=== PATIENT | female | born 1990 | race Caucasian/White ===

== ENCOUNTER 2019-08-14 14:54 | Emergency (ER) | payer MEDICAID, OTHER ==
[~2019-08-14] VITALS: Ht 157.5 cm; Wt 92.5 kg
[2019-08-14 15:24] VITALS: BP 183/92
--- NOTE | 2019-08-14 15:30 | NUR ---
PT BIB C/O HIGH BLOOD PRESSURE 154/110 UPON NURSING ASSESSMENT AND HEAVINESS OCCIPITAL ANTONIO 8/10 TODAY. DENIES NAUSEA, VOMITING, VISION CHANGES, DIZZINESS, OR CONSTIPATION. PATIENT POSITIONED FOR COMFORT; HOB ELEVATED; BEDRAILS UP X1; BED DOWN. ER MD MADE AWARE OF PT STATUS. IS AT BEDSIDE AND PT IS ON MONITOR.
--- NOTE | 2019-08-14 15:46 | NUR ---
DR GALEAS EVALUATING PT AT BEDSIDE
--- NOTE | 2019-08-14 16:25 | NUR ---
PT AMBULATED TO THE BATHROOM ACCOMPANIED BY .
[2019-08-14 17:12] VITALS: BP 148/88
--- NOTE | 2019-08-14 17:12 | NUR ---
Patient discharged with v/s stable. Written and verbal after care instructions given and explained. Patient verbalized understanding. Ambulatory with steady gait. All questions addressed prior to discharge. Advised to follow up with PMD.
== END 2019-08-14 17:12 | disposition home or self-care (01) ==
LOC: MED 14:54
DX: I10 Essential (primary) hypertension (principal); Z98.890 Other specified postprocedural states
CPT/HCPCS: 99283

== ENCOUNTER 2019-08-26 23:58 | Emergency (ER) | payer OTHER ==
[~2019-08-26] VITALS: Ht 157.5 cm; Wt 93.0 kg
[2019-08-27 00:05] VITALS: BP 146/95
--- NOTE | 2019-08-27 00:08 | NUR ---
PT TAKEN TO BED #7
--- NOTE | 2019-08-27 00:25 | NUR ---
28 YEAR OLD FEMALE COMPLAINS OF EPIGASTRIC PAIN 10/ X 3 HOURS AGO. PATIENT STATES SHE HAS HAD NAUSEA AND VOMITTING. PATIENT BOWEL SOUNDS ACTIVE X4, NONTENDER ON PALPATION, FLAT, AND SOFT. PATIENT AOX4, BREATHING EVEN AND UNLABORED, SKIN WARM AND DRY. BED IN LOWEST POSITION, LOCKED, BED RAIL UPX1. PMH - HTN MEDS - "BP MEDS" ALLERGIES - NKA
[2019-08-27] MEDS ORDERED: ONDANSETRON 4 MG/2 ML VIAL IVP ONE (01:00)
[2019-08-27] MEDS ORDERED: MORPHINE SULFATE 4 MG/ML SYR IVP ONE (01:00)
[2019-08-27 01:21] LABS: APPEARANCE,URINE SL CLOUDY (CLEAR); BILIRUBIN,URINE 1+ (NEGATIVE); BLOOD, URINE 3+ (NEGATIVE); COLOR,URINE DARK YELLOW (YELLOW); LEUKOCYTE ESTERASE ,URINE TRACE (NEGATIVE); NITRITE, URINE NEGATIVE (NEGATIVE); PH,URINE 7.5 (5.0-9.0); UGLUCOSE NEGATIVE (NEGATIVE)
[2019-08-27 01:22] LABS: BASOPHILS % (AUTO) 0.2 % (0.0-2.0); EOSINOPHILS # (AUTO) 0.1 K/uL (0-0.4); EOSINOPHILS % (AUTO) 0.5 % (0.0-4.0); HEMATOCRIT 43.2 % (36-48); LYMPHOCYTES # (AUTO) 2.3 K/uL (2.5-16.5); MEAN CORPUSCULAR HEMOGLOBIN 25 pg (27-31); MEAN CORPUSCULAR HGB CONC 32 g/dL (33-37); MEAN CORPUSCULAR VOLUME 78.3 fL (80-94); MONOCYTES % (AUTO) 3.7 % (1.7-9.3); NEUTROPHILS # (AUTO) 23.5 K/uL (1.8-7.7); PLATELET COUNT (AUTO) 323 K/uL (140-450); RED BLOOD CELL COUNT(AUTO) 5.52 MIL/uL (4.20-5.40); RED CELL DISTRIBUTION WIDTH 15.4 % (11.6-13.7)
[2019-08-27 01:32] LABS: ANION GAP 14.6 (8-16); CREATININE 0.8 mg/dL (0.6-1.3); POTASSIUM 3.6 mmol/L (3.5-5.1)
[2019-08-27 01:38] LABS: ALBUMIN 3.6 g/dL (3.4-5.0); TOTAL BILIRUBIN 0.3 mg/dL (0.0-1.0)
[2019-08-27 01:39] LABS: RBC,URINE TOO NUMEROUS TO COUN /HPF (0-5)
--- NOTE | 2019-08-27 01:43 | NUR ---
PATIENT ALERT AND AWAKE, BREATHING EVEN AND UNLABORED
[2019-08-27 01:45] LABS: LYMPHOCYTES % (AUTO) 8.6 % (20.5-51.1)
[2019-08-27] MEDS ORDERED: cefTRIAXone 1,000 MG VIAL ONE (01:51)
--- NOTE | 2019-08-27 02:26 | NUR ---
PATIENT ALERT AND AWAKE, BREATHING EVEN AND UNLABORED. PT TAKEN TO CT
[2019-08-27 03:15] VITALS: BP 117/57
--- NOTE | 2019-08-27 03:15 | NUR ---
DISCHARGE DONE BY DR GASTON. Patient discharged with v/s stable. Written and verbal after care instructions ABOUT URINARY TRACT INFECTIONS AND CHOLELITHIASIS given and explained. Patient alert, oriented and verbalized understanding of instructions. Ambulatory with steady gait. All questions addressed prior to discharge. ID band removed. Patient advised to follow up with PMD. Rx of CIPROFLOXACIN given. Patient educated on indication of medication including possible reaction and side effects. Opportunity to ask questions provided and answered. PATIENT GIVEN EXCUSE FROM WORK.
== END 2019-08-27 03:15 | disposition home or self-care (01) ==
LOC: MED 23:58
DX: K80.80 Other cholelithiasis without obstruction (principal); N39.0 Urinary tract infection, site not specified; I10 Essential (primary) hypertension; K58.9 Irritable bowel syndrome, unspecified; Z98.890 Other specified postprocedural states
CPT/HCPCS: 36415; 74176; 76705; 80053; 81001; 81025; 82150; 83690; 85025; 87086; 96365; 96375; 99284; J0696; J2270; J2405; Q0092

== ENCOUNTER 2019-10-13 09:57 | Day surgery (SDC) | payer OTHER ==
[~2019-10-13] VITALS: Ht 157.5 cm; Wt 90.7 kg
[2019-10-13] MEDS ORDERED: BUPIVACAINE-MPF/EPI 0.5% 30 ML VIAL INJ ONE (11:00)
[2019-10-13] MEDS ORDERED: DESFLURANE 240 ML BTL INH ONE (11:34)
[2019-10-13] MEDS ORDERED: KETOROLAC 30 MG/ML VIAL ONE (11:34)
[2019-10-13] MEDS ORDERED: DEXAMETHASONE 4 MG/ML VIAL ONE (11:34)
[2019-10-13] MEDS ORDERED: ROCURONIUM 50 MG/5 ML VIAL IV ONE (11:34)
[2019-10-13] MEDS ORDERED: PROPOFOL 200 MG/20 ML VIAL IV ONE (11:34)
[2019-10-13] MEDS ORDERED: NEOSTIGMINE 1:1000 10 MG/10 ML VIAL ONE (11:34)
[2019-10-13] MEDS ORDERED: fentaNYL 0.05 MG/ML VIAL ONE (11:34)
[2019-10-13] MEDS ORDERED: GLYCOPYRROLATE 0.2 MG/ML VIAL ONE (11:34)
[2019-10-13] MEDS ORDERED: HYDROmorphone PFS 2 MG/ML SYR ONE (11:34)
[2019-10-13] MEDS ORDERED: ONDANSETRON 4 MG/2 ML VIAL ONE (11:34)
[2019-10-13] MEDS ORDERED: HYDROmorphone 1 MG/ML AMP IVP PRN ×2 (12:55→13:05)
[2019-10-13] MEDS ORDERED: ONDANSETRON 4 MG/2 ML VIAL IVP PRN ×2 (12:55→13:05)
[2019-10-13] MEDS ORDERED: MORPHINE SULFATE 4 MG/ML SYR IV PRN (13:05)
[2019-10-13] MEDS ORDERED: HYDROcodone/APAP 5/325 MG 1 TAB TAB PO PRN (13:05)
[2019-10-13] MEDS ORDERED: ACETAMINOPHEN 325 MG TAB PO PRN (13:05)
[2019-10-13] MEDS ORDERED: MORPHINE SULFATE 2 MG/ML SYR IVP PRN (13:05)
== END 2019-10-13 14:35 | disposition home or self-care (01) ==
LOC: MDS 09:57 → MMU 09:58 → MDS 14:35
PROVIDERS: ATTEND Surgery
DX: K80.20 Calculus of gallbladder without cholecystitis without obstruction (principal); E66.9 Obesity, unspecified; I10 Essential (primary) hypertension; Z90.710 Acquired absence of both cervix and uterus
CPT/HCPCS: 36415; 47562; 71045; 82374; 86886; 86900; 86901; 88304; J0690; J1100; J1170; J1885; J2405; J2704; J2710; J3010; J3490; J7030; J7060; J7120

== ENCOUNTER 2021-04-06 21:30 | Emergency (ER) | payer OTHER ==
[~2021-04-06] VITALS: Ht 157.5 cm; Wt 95.3 kg
[2021-04-06 21:40] VITALS: BP 139/70
--- NOTE | 2021-04-06 21:43 | NUR ---
TO LOBBY A/W BED AMBULATORY
--- NOTE | 2021-04-06 22:05 | NUR ---
PT BIB SELF FOR C/C CHEST PAIN TO STERNAL AREA THAT RADIATES TO LEFT SHOULDER AND LEFT ELBOW. PAIN IS 6/10, INTERMITTENT X 4 DAYS. DENIES SOB, FEVER, CHILLS, N/V/D. NO NOTED JVD OR EDEMA. CAP REFILL < 3 SECONDS. AMBULATORY. A&O X 4. MED HX: HTN, GALLBLADDER REMOVED ALLERGIES: NKA
--- NOTE | 2021-04-06 22:15 | NUR ---
ADDIE EMT AT BEDSIDE FOR EKG.
--- NOTE | 2021-04-06 22:40 | NUR ---
LAB AT BEDSIDE.
[2021-04-06 22:54] LABS: BASOPHILS # (AUTO) 0.1 K/uL (0.00-0.22); BASOPHILS % (AUTO) 0.6 % (0.0-2.0); EOSINOPHILS # (AUTO) 0.2 K/uL (0-0.4); EOSINOPHILS % (AUTO) 1.2 % (0.0-4.0); HEMATOCRIT 38.3 % (36-48); HEMOGLOBIN 12.5 g/dL (12.0-16.0); LYMPHOCYTES # (AUTO) 2.7 K/uL (2.5-16.5); LYMPHOCYTES % (AUTO) 20.5 % (20.5-51.1); MEAN CORPUSCULAR HEMOGLOBIN 27 pg (27-31); MEAN CORPUSCULAR HGB CONC 33 g/dL (33-37); MEAN CORPUSCULAR VOLUME 82.6 fL (80-94); MONOCYTES # (AUTO) 0.8 K/uL (0.8-1.0); MONOCYTES % (AUTO) 5.9 % (1.7-9.3); NEUTROPHILS # (AUTO) 9.5 K/uL (1.8-7.7); NEUTROPHILS % (AUTO) 71.8 % (42.2-75.2); PLATELET COUNT (AUTO) 258 K/uL (140-450); RED BLOOD CELL COUNT(AUTO) 4.64 MIL/uL (4.20-5.40); RED CELL DISTRIBUTION WIDTH 15.2 % (11.6-13.7); WHITE BLOOD COUNT (AUTO) 13.2 K/uL (4.8-10.8)
[2021-04-06 23:11] LABS: ALBUMIN 3.3 g/dL (3.4-5.0); ANION GAP 9.6 (8-16); CARBON DIOXIDE 29.8 mmol/L (21-32); CREATININE 0.8 mg/dL (0.6-1.3); POTASSIUM 3.4 mmol/L (3.5-5.1); TOTAL BILIRUBIN 0.1 mg/dL (0.0-1.0)
--- NOTE | 2021-04-06 23:26 | NUR ---
PT RESTING IN BED COMFORTABLY. VSS. ALL NEEDS MET AT THIS TIME. WILL CONTINUE TO MONITOR.
[2021-04-06] MEDS ORDERED: PANT40EC PO (23:44)
[2021-04-07] VITALS: BP 105/68
--- NOTE | 2021-04-07 | NUR ---
Patient discharged with v/s stable. Written and verbal after care instructions given and explained. Patient alert, oriented and verbalized understanding of instructions. Ambulatory with steady gait. All questions addressed prior to discharge. ID band removed. Patient advised to follow up with PMD. Rx of PROTONIX given. Patient educated on indication of medication including possible reaction and side effects. Opportunity to ask questions provided and answered.
== END 2021-04-07 | disposition home or self-care (01) ==
LOC: MED 21:30
DX: R07.89 Other chest pain (principal); I10 Essential (primary) hypertension; Z79.899 Other long term (current) drug therapy; Z98.890 Other specified postprocedural states
CPT/HCPCS: 36415; 71045; 80053; 84484; 85025; 93005; 99285; Q0092

== ENCOUNTER 2023-09-30 21:46 | Emergency (ER) | payer OTHER ==
[~2023-09-30] VITALS: Ht 157.5 cm; Wt 86.2 kg
[~2023-09-30 21:46] MED LIST: PANT40EC PO
[2023-09-30 21:53] VITALS: BP 157/92; PULSE 72; RESP 16; TEMP 98.1; O2SAT 100
[2023-09-30 23:22] LABS: BASOPHILS # (AUTO) 0.1 K/uL (0.00-0.22); BASOPHILS % (AUTO) 0.7 % (0.0-2.0); EOSINOPHILS # (AUTO) 0.2 K/uL (0-0.4); EOSINOPHILS % (AUTO) 1.6 % (0.0-4.0); HEMATOCRIT 38.1 % (36-48); HEMOGLOBIN 12.8 g/dL (12.0-16.0); LYMPHOCYTES # (AUTO) 2.6 K/uL (2.5-16.5); LYMPHOCYTES % (AUTO) 20.9 % (20.5-51.1); MEAN CORPUSCULAR HEMOGLOBIN 27 pg (27-31); MEAN CORPUSCULAR HGB CONC 34 g/dL (33-37); MEAN CORPUSCULAR VOLUME 81.8 fL (80-94); MONOCYTES % (AUTO) 7.5 % (1.7-9.3); NEUTROPHILS # (AUTO) 8.8 K/uL (1.8-7.7); NEUTROPHILS % (AUTO) 69.3 % (42.2-75.2); PLATELET COUNT (AUTO) 286 K/uL (140-450); RED BLOOD CELL COUNT(AUTO) 4.66 MIL/uL (4.20-5.40); RED CELL DISTRIBUTION WIDTH 13.7 % (11.6-13.7); WHITE BLOOD COUNT (AUTO) 12.6 K/uL (4.8-10.8)
[2023-09-30 23:43] LABS: ANION GAP 9.6 (8-16); CARBON DIOXIDE 30.4 mmol/L (21-32)
[2023-09-30 23:55] LABS: AMPHETAMINE, URINE NEGATIVE ng/ml (NEG <=1000); BARBITURATE, URINE NEGATIVE ng/ml (NEG <=200); BENZODIAZEPINE, URINE NEGATIVE ng/mL (NEG <=200); CANNABINOID, URINE NEGATIVE ng/mL (NEG <=50); COCAINE, URINE NEGATIVE ng/mL (NEG <=300); OPIATE, URINE NEGATIVE ng/mL (NEG <=2000); PHENCYCLIDINE SCREEN,URINE NEGATIVE ng/mL (NEG <=25)
[2023-10-01] MEDS ORDERED: IBUP-2213 PO (00:18)
[2023-10-01] MEDS: POTASSIUM CHLORIDE 10 MEQ TABER PO ONE (00:40)
[2023-10-01 00:50] VITALS: BP 118/67; PULSE 88; RESP 20; O2SAT 97
== END 2023-10-01 00:50 | disposition home or self-care (01) ==
LOC: MED 21:46
DX: F41.9 Anxiety disorder, unspecified (principal); R07.89 Other chest pain; E87.6 Hypokalemia; Z79.899 Other long term (current) drug therapy
CPT/HCPCS: 36415; 71046; 80048; 80305; 81025; 84484; 85025; 93005; 99285; Q0092